=== PATIENT | male | born 1955 | race African-American/Black ===

== ENCOUNTER → 2017-03-05 | Outpatient (CLI) | payer OTHER ==
[~2017-03-05] MED LIST: ALE70 PO; ALEN70TA2 PO; ALEN70TA43 PO; AMLO-99 PO; AMOX-362 PO; BACDS PO; BENZ200C15 PO; BENZ200C38 PO; CALC1CAP PO; CELE-1 PO; CHOL100060 PO; CLAR-1 PO; CODE118S5 PO; COUGH SYRUP; CYAN500T50 PO; CYC10 PO; CYCL-277 PO; FERR-41 PO; FOLI-68 PO; LIS10 PO; LISI-374 PO; LOR5 PO; LOR75 PO; MELO-150 PO; METH2.5T43 PO; OMEP-125 PO; OXYC-375 PO; OXYC1TAB54 PO; PANT40TA65 PO; PNEU0.5D3 IM; PRA20 PO; PRAV20TA66 PO; PRE20 PO; PRED-420 PO; PRED20TA6 PO; PREVPACPT PO; RABE20TA33 PO; SUCR1TAB85 PO; SULF-197 PO; TRAM-420 PO; ZOLP-358 PO; ZOLP10TA5 PO; [UNRECOGNIZED DRUG - CODE] PO; [UNRECOGNIZED DRUG - OTHER]
[2017-03-05 14:23] LABS: PLATELET COUNT, AUTOMATED 283 K/uL (150-450)
--- NOTE | 2017-03-05 18:00 | EKG ---
[facility] PATIENT NAME: ERICA KESSLER : [id number] MR: [id number] V: [id number] EXAM DATE: ORDERING PHYSICIAN: KIM GIORDANO TECHNOLOGIST: PAUL Negrete Reason : SARCOID Blood Pressure : / mmHG Vent. Rate : 068 BPM Atrial Rate : 068 BPM P-R Int : 170 ms QRS Dur : 142 ms QT Int : 440 ms P-R-T Axes : 069 -15 043 degrees QTc Int : 467 ms Normal sinus rhythm Right bundle branch block Abnormal ECG When compared with ECG of 03-SEP-2015 13:23, No significant change was found Confirmed by ARI HUNT ([id number]) on 03/06/2017 6:22:02 AM Referred By: CHINEDU MCGHEE Confirmed By:ARI HUNT
== END ==
LOC: LAB 14:07
PROVIDERS: ATTEND Internal Medicine
DX: R94.31 Abnormal electrocardiogram [ECG] [EKG] (principal); D86.9 Sarcoidosis, unspecified
CPT/HCPCS: 36415; 82040; 82247; 82306; 82310; 82374; 82435; 82565; 82947; 84075; 84132; 84155; 84295; 84450; 84460; 84520; 85007; 85027; 93005

== ENCOUNTER → 2017-04-04 | Outpatient (CLI) | payer OTHER ==
[~2017-04-04] MED LIST changes: +AZIT-17 PO; +PRE5 PO
--- NOTE | 2017-04-04 11:25 | RADIOLOGY IMAGING REPORT ---
FACILITY: [facility] PATIENT NAME: Bladimir Ashby : 1955 MR: [id number] V: [id number] EXAM DATE: ORDERING PHYSICIAN: KIM GIORDANO TECHNOLOGIST: Location: [facility] [place] Patient: Bladimir Ashby : 1955 Visit/Account:[id number] Date of Sevice: 04/04/2017 CHEST PA AND LAT HISTORY: Cough. Shortness of breath. Chest pain. Nonsmoker. Sleep apnea. COMPARISON: Chest x-ray December 14, 2011. FINDINGS: Cardiomediastinal contours: Normal Lungs and pleura: Again noted are fibrotic course interstitial changes throughout the right and left lung. In the right side the changes are mostly in the right upper lobe or right midlung. On the lef t side there are most bleed noted in the left midlung. Again there are surgical clips overlying the mediastinum. Atrophy of the right sixth rib is related to previous chest surgery associated with the surgical clips. Bones/soft tissues: Status post right lateral thoracotomy. IMPRESSION: 1. Status post right lateral thoracotomy with atrophy of the right sixth rib and surgical clips in t he right hilum. 2. Coarse interstitial fibrotic changes of the right mid to upper lobe and the left midlung. These findings are essentially stable. 3. No new infiltrate seen. Report Dictated By: Teofilo Haro MD at 04/04/2017 11:18 AM Report E-Signed By: Teofilo Haro MD at 04/04/2017 11:21 AM WSN:[email or web address]
== END ==
LOC: RAD 10:32
PROVIDERS: ATTEND Internal Medicine
DX: R91.8 Other nonspecific abnormal finding of lung field (principal); Z98.890 Other specified postprocedural states
CPT/HCPCS: 71046

== ENCOUNTER → 2017-05-17 | Outpatient (CLI) | payer OTHER ==
[2017-05-17 11:24] LABS: PLATELET COUNT, AUTOMATED 272 K/uL (150-450)
--- NOTE | 2017-05-17 12:54 | RADIOLOGY IMAGING REPORT ---
FACILITY: [facility] PATIENT NAME: Bladimir Ashby : 1955 MR: [id number] V: [id number] EXAM DATE: ORDERING PHYSICIAN: EMELIA MENENDEZ TECHNOLOGIST: Location: [facility] Patient: Bladimir Ashby : 1955 Visit/Account:[id number] Date of Sevice: 05/17/2017 Exam type: CHEST PA AND LAT History: Copy two weeks, shortness of breath, tightness when coughing Comparison: April 04, 2017. Findings: Again noted are postsurgical changes from a right thoracotomy. There is extensive pleural parenchyma l scarring over the right thorax to lesser extent left mid to lower lung field. No acute areas of pu lmonary consolidation identified. The cardiac silhouette is normal in size. IMPRESSION: 1. Post surgical changes from right thoracotomy with bilateral pleural parenchymal scarring, right g reater than left appear similar to the prior study No acute pulmonary consolidation identified Report Dictated By: Carito Stone MD at 05/17/2017 12:48 PM Report E-Signed By: Carito Stone MD at 05/17/2017 12:51 PM WSN:[email or web address]
== END ==
LOC: LAB 11:10
PROVIDERS: ATTEND Internal Medicine
DX: R05 Cough (principal)
CPT/HCPCS: 36415; 71046; 82040; 82247; 82310; 82374; 82435; 82565; 82947; 84075; 84132; 84155; 84295; 84450; 84460; 84520; 85025

== ENCOUNTER → 2017-06-18 | Outpatient (CLI) | payer OTHER ==
[~2017-06-18] MED LIST changes: +GUAI237L21 PO; +TRAZ-156 PO
[2017-06-18 11:08] LABS: PLATELET COUNT, AUTOMATED 268 K/uL (150-450)
[2017-06-18 11:47] LABS: LDL CHOLESTEROL 141 mg/dl
== END ==
LOC: LAB 10:52
PROVIDERS: ATTEND Internal Medicine
DX: Z12.5 Encounter for screening for malignant neoplasm of prostate (principal); D64.9 Anemia, unspecified; I10 Essential (primary) hypertension; E05.90 Thyrotoxicosis, unspecified without thyrotoxic crisis or storm; E53.8 Deficiency of other specified B group vitamins; E55.9 Vitamin D deficiency, unspecified; E78.00 Pure hypercholesterolemia, unspecified; D64.89 Other specified anemias
CPT/HCPCS: 36415; 82040; 82247; 82306; 82310; 82374; 82435; 82465; 82565; 82607; 82728; 82746; 82947; 83540; 83550; 83718; 84075; 84132; 84153; 84155; 84295; 84439; 84443; 84450; 84460; 84478; 84520; 85025

== ENCOUNTER → 2018-04-12 | Outpatient (CLI) | payer OTHER ==
[~2018-04-12] MED LIST changes: -ALEN70TA2 PO; +ALEN70TA46 PO; +AMLO-127 PO; -AMLO-99 PO; +AZIT-1 PO; +GUAI120L3 PO; -OXYC-375 PO; +OXYC1TAB78 PO; -TRAZ-156 PO; +TRAZ50TA34 PO
--- NOTE | 2018-04-12 15:29 | RADIOLOGY IMAGING REPORT ---
FACILITY: [facility] [place] PATIENT NAME: Bladimir Ashby : 1955 MR: [id number] V: [id number] EXAM DATE: ORDERING PHYSICIAN: JAYME PAZ TECHNOLOGIST: Location: [facility] [place] Patient: Bladimir Ashby : 1955 Visit/Account:[id number] Date of Sevice: 04/12/2018 Exam type: CHEST PA LAT History: Cough, shortness of breath x1 week Comparison: May 17, 2017. Findings: Again noted are post surgical changes from a right thoracotomy with extensive pleural parenchymal sca rring bilaterally. No acute areas of pulmonary consolidation are identified. The cardiac silhouette is normal in size IMPRESSION: 1. Post surgical changes from a right thoracotomy with extensive pleural parenchymal scarring bilate rally although no evidence of acute pulmonary consolidation Report Dictated By: Carito Stone MD at 04/12/2018 3:22 PM Report E-Signed By: Carito Stone MD at 04/12/2018 3:23 PM WSN:[email or web address]
== END ==
LOC: RAD 13:32
PROVIDERS: ATTEND Nurse Practitioner Primary Care
DX: R05 Cough (principal)
CPT/HCPCS: 71046

== ENCOUNTER → 2018-06-24 | Outpatient (CLI) | payer OTHER, MEDICARE ==
[~2018-06-24] MED LIST changes: +BENZ100C26 PO; +CHOL100059 PO; +FLUT16SP19 NS; +LISI20TA29 PO
[2018-06-24 09:56] LABS: PLATELET COUNT, AUTOMATED 271 K/uL (150-450)
[2018-06-24 17:37] LABS: LDL CHOLESTEROL 115 mg/dl
== END ==
LOC: LAB 09:00
PROVIDERS: ATTEND Internal Medicine
DX: E05.90 Thyrotoxicosis, unspecified without thyrotoxic crisis or storm (principal); D64.9 Anemia, unspecified; E55.9 Vitamin D deficiency, unspecified; I10 Essential (primary) hypertension; E53.8 Deficiency of other specified B group vitamins; E78.5 Hyperlipidemia, unspecified; D86.0 Sarcoidosis of lung
CPT/HCPCS: 36415; 81001; 82040; 82247; 82310; 82374; 82435; 82465; 82565; 82728; 82746; 82947; 83036; 83540; 83550; 83718; 84075; 84132; 84153; 84155; 84295; 84439; 84443; 84450; 84460; 84478; 84520; 85025